=== PATIENT | male | born 2000 | race African-American/Black ===

== ENCOUNTER 2019-01-18 10:16 | Emergency (ER) | payer OTHER ==
[~2019-01-18] VITALS: Ht 185.4 cm; Wt 97.2 kg
[2019-01-18] MEDS ORDERED: KETOROLAC 30 MG/ML VIAL (J1885) IV ONE (11:45)
[2019-01-18] MEDS ORDERED: ONDANSETRON 4MG/2ML VIAL (J2405) IV ONE (11:45)
[2019-01-18] MEDS ORDERED: NS 1,000 ML IV ONE (11:45)
[2019-01-18 12:08] LABS: BASO % 0.4 % (0.0-1.0); EOS % 0.6 % (0.0-3.0); HEMATOCRIT 47.6 % (42.0-52.0); HEMOGLOBIN 16.2 g/dl (13.5-17.5); LYMPH # 1.9 10^3/uL (1.5-6.5); LYMPH % 27.4 % (24.0-44.0); MEAN CORPUSCULAR HEMOGLOBIN 29.8 pg (27.0-33.0); MEAN CORPUSCULAR VOLUME 87.5 fl (80.0-96.0); MONO # 0.7 10^3/uL (0.0-0.8); NEUTROPHILS # 4.2 10^3/uL (1.8-7.7); NEUTROPHILS % 61.3 % (36.0-66.0); PLATELET COUNT, AUTOMATED 294 10^3/uL (150-450); RED BLOOD COUNT 5.44 10^6/uL (4.30-6.10); WHITE BLOOD COUNT 6.9 10^3/uL (4.0-10.0)
[2019-01-18 12:40] LABS: ALBUMIN 3.9 GM/DL (3.2-5.2); BILIRUBIN,DIRECT 0.2 MG/DL (0.0-0.2); BILIRUBIN,TOTAL 0.5 MG/DL (0.2-1.0); TOTAL PROTEIN 7.6 GM/DL (6.4-8.2)
[2019-01-18] MEDS ORDERED: GI COCKTAIL 50ML BTL(HYOSCYAMINE/MAALOX/LIDOCAINE VISCOUS)(1:3:1) PO ONE (13:30)
[2019-01-18] MEDS ORDERED: ZOFR8TAB24 PO (13:31)
[2019-01-18 13:38] VITALS: BP 127/72
== END 2019-01-18 13:41 | disposition home or self-care (01) ==
LOC: M ED 10:16
DX: K52.9 Noninfective gastroenteritis and colitis, unspecified (principal); Z72.0 Tobacco use
CPT/HCPCS: 36415; 80047; 80076; 81001; 83690; 85025; 96374; 96375; 99284; J1885; J2405

== ENCOUNTER 2019-01-21 09:52 | Emergency (ER) | payer OTHER ==
[~2019-01-21] VITALS: Ht 185.4 cm; Wt 87.9 kg
[~2019-01-21 09:52] MED LIST: ZOFR8TAB24 PO
[2019-01-21 09:53] VITALS: BP 130/73
[2019-01-21 11:22] LABS: BASO % 0.3 % (0.0-1.0); EOS % 0.3 % (0.0-3.0); HEMATOCRIT 45.8 % (42.0-52.0); HEMOGLOBIN 15.5 g/dl (13.5-17.5); LYMPH # 1.5 10^3/uL (1.5-6.5); MEAN CORPUSCULAR HEMOGLOBIN 30.4 pg (27.0-33.0); MEAN CORPUSCULAR HGB CONC 33.8 g/dl (32.0-36.5); MEAN CORPUSCULAR VOLUME 89.8 fl (80.0-96.0); MONO # 0.5 10^3/uL (0.0-0.8); MONO % 7.7 % (0.0-5.0); NEUTROPHILS # 4.1 10^3/uL (1.8-7.7); NEUTROPHILS % 67.4 % (36.0-66.0); PLATELET COUNT, AUTOMATED 281 10^3/uL (150-450); WHITE BLOOD COUNT 6.1 10^3/uL (4.0-10.0)
[2019-01-21 11:40] LABS: ALBUMIN 3.7 GM/DL (3.2-5.2); ALT/SGPT 31 U/L (12-78); BILIRUBIN,DIRECT 0.1 MG/DL (0.0-0.2); BILIRUBIN,TOTAL 0.4 MG/DL (0.2-1.0); BLOOD UREA NITROGEN 11 MG/DL (7-18); CALCIUM LEVEL 8.5 MG/DL (8.5-10.1); CARBON DIOXIDE LEVEL 28 MEQ/L (21-32); CHLORIDE LEVEL 109 MEQ/L (98-107); CREATININE FOR GFR 1.14 MG/DL (0.70-1.30); GLUCOSE, FASTING 91 MG/DL (70-100); LIPASE 83 U/L (73-393); POTASSIUM SERUM 4.2 MEQ/L (3.5-5.1); SODIUM LEVEL 142 MEQ/L (136-145); TOTAL PROTEIN 7.4 GM/DL (6.4-8.2)
[2019-01-21] MEDS ORDERED: ONDA4TAB5 PO (12:22)
== END 2019-01-21 12:33 | disposition home or self-care (01) ==
LOC: M ED 09:52
DX: R11.10 Vomiting, unspecified (principal); F17.210 Nicotine dependence, cigarettes, uncomplicated

== ENCOUNTER 2019-09-21 09:00 | Day surgery (SDC) | payer OTHER ==
[~2019-09-21] VITALS: Ht 185.4 cm; Wt 87.6 kg
[~2019-09-21 09:00] MED LIST changes: +LR 1,000 ML IV ONE; +ONDA-83 PO; +ceFAZolin SOD 2 GM in IV 1 EA IV ONE
[2019-09-21] MEDS ORDERED: LIDOCAINE 1% SDV INJ 30 ML VIAL As Ordered ONE (10:53)
[2019-09-21] MEDS ORDERED: dexameTHASONE 4 MG/ML 1ML VIAL (J1100) As Ordered ONE ×2 (10:53→11:16)
[2019-09-21] MEDS ORDERED: BUPIVACAINE HCL 0.5% 30 ML VIAL As Ordered ONE (10:53)
[2019-09-21] MEDS ORDERED: fentaNYL 100 MCG/2 ML INJECTION (J3010) As Ordered ONE ×2 (11:16→11:44)
[2019-09-21] MEDS ORDERED: propofoL 200 MG/20 ML VIAL As Ordered ONE (11:16)
[2019-09-21] MEDS ORDERED: ONDANSETRON 4MG/2ML VIAL (J2405) As Ordered ONE (11:16)
[2019-09-21] MEDS ORDERED: METOCLOPRAMIDE INJ 10MG/2ML VIAL (J2765) As Ordered ONE (11:16)
[2019-09-21] MEDS ORDERED: MIDAZOLAM INJ 2 MG/2 ML VIAL (J2250) As Ordered ONE (11:16)
[2019-09-21] MEDS ORDERED: LIDOCAINE 2% INJ 100 MG/5 ML SDV (FOR ANES.) As Ordered ONE (11:16)
[2019-09-21] MEDS ORDERED: KETOROLAC 60 MG/2 ML VIAL (J1885) As Ordered ONE (11:16)
[2019-09-21] MEDS ORDERED: PHENYLephrine HCL 500 MCG/5 ML (100MCG/ML) SYRINGE (J2370) As Ordered ONE (11:43)
[2019-09-21] MEDS ORDERED: HYDROMORPHONE HCL 0.5 MG/ 0.5 ML SYRINGE (J1170 PER 1) IV PRN (13:00)
[2019-09-21] MEDS ORDERED: fentaNYL 100 MCG/2 ML INJECTION (J3010) IV PRN (13:00)
[2019-09-21] MEDS ORDERED: LR 1,000 ML IV SCH (13:00)
[2019-09-21] MEDS ORDERED: ONDANSETRON 4MG/2ML VIAL (J2405) IV PRN (13:00)
[2019-09-21] MEDS: PERCOCET 5MG/325MG TAB PO PRN ×3 (13:02→13:26)
--- NOTE | 2019-09-21 13:39 | RO ---
DATE OF PROCEDURE: 09/21/2019 PREPROCEDURE DIAGNOSIS: Left chronic ankle sprain. POSTPROCEDURE DIAGNOSIS: Left chronic ankle sprain. PROCEDURE: Left lateral ankle repair with internal brace. SURGEON: Dr. Clay Lawrence UG DESIGNER: None. ANESTHESIA: General LMA. Preoperative injection of 20 mL of 1:1 mixture of 1% lidocaine plain and 1/2% Marcaine plain. ESTIMATED BLOOD LOSS: Minimal. MATERIALS: Arthrex internal brace implant system and two Arthrex fiber tacks. #3-0 and #4-0 Vicryl and #4-0 nylon. INJECTABLES: None. COMPLICATIONS: None. CONDITION: Stable. Arnoldo Raymond is a 19-year-old male who has chronic ankle sprain with ankle instability who presents today for surgical correction. The patient side and side were identified and marked in preoperative holding area. Consent was reviewed and obtained. The risks, complications and alternatives to the procedure were explained to the patient in detail and all questions were answered. DESCRIPTION OF PROCEDURE: The patient was brought to the operating room and placed on the operating room in supine position. General LMA anesthesia was delivered by the anesthesia team. Preoperative injection of 20 mL of 1:1 mixture of 1% lidocaine plain and 0.25% Marcaine plain were injected to the left foot. The left foot was prepped and draped in normal sterile fashion. A tourniquet was applied to the left calf and inflated at 225 mmHg. A curvilinear incision was made around the lateral ankle and carried through with #15 blade. Dissection was carried down until the fibula and lateral ankle capsule were identified. Dissection was carried until the anterior talofibular ligament (ATFL) was noted. This was noted to be thickened with some laxness. This was released off the fibula with #15 blade. Following this, the ATFL was repaired in a tighter position using two Arthrex fiber tacks and the repair was augmented using the Arthrex internal brace from the talus into the fibula. Laxity was noted to be improved. The site was irrigated with normal saline. Deep closure was performed with #3-0 Vicryl, subcutaneous closure with #4-0 Vicryl and skin closure with #4-0 nylon. Sterile dressings were applied. A posterior splint was applied. The tourniquet was deflated. The patient was brought to the postanesthesia care unit (PACU) with vital signs stable and neurovascular status intact. He will be non weight bearing. He will followup in the office in two days.
[2019-09-21 13:40] VITALS: BP 128/72
== END 2019-09-21 14:08 | disposition home or self-care (01) ==
LOC: M SDC 09:00
PROVIDERS: ATTEND Podiatrist Foot & Ankle Surgery
DX: M25.372 Other instability, left ankle (principal); M25.572 Pain in left ankle and joints of left foot; Z79.899 Other long term (current) drug therapy; F17.218 Nicotine dependence, cigarettes, with other nicotine-induced disorders
CPT/HCPCS: 27698; C1713; J0690; J1100; J1885; J2250; J2405; J2765; J3010

== ENCOUNTER 2021-10-08 14:36 | Emergency (ER) | payer OTHER ==
[~2021-10-08] VITALS: Ht 185.4 cm; Wt 88.8 kg
[2021-10-08 14:36] VITALS: BP 127/61
[~2021-10-08 14:36] MED LIST changes: -LR 1,000 ML IV ONE; -ceFAZolin SOD 2 GM in IV 1 EA IV ONE
== END 2021-10-08 16:45 | disposition left against medical advice (07) ==
LOC: M ED 14:36
DX: Z53.29 Procedure and treatment not carried out because of patient's decision for other reasons (principal)